=== PATIENT | male | born 1990 | race Caucasian/White ===

== ENCOUNTER 2023-05-08 15:53 | Outpatient (CLI) | payer OTHER, SELFPAY ==
--- NOTE | ~2023-05-08 | CT_ITS ---
EXAMINATION: CT abdomen pelvis wo con DATE: 05/08/2023 16:14 INDICATION: K43.9 - Ventral hernia without obstruction or gangrene TECHNIQUE: Computed tomography (CT) of the abdomen and pelvis was performed without intravenous contr ast. Automated exposure control and iterative reconstruction technique were employed. The dose-length product was 1154.21 mGy-cm. COMPARISON: None. FINDINGS: Lower thorax: Multiple calcified granulomas. Liver: Normal. Biliary/Gallbladder: Gallbladder is collapsed. No bile duct dilation. Pancreas: No mass or duct dilation. Spleen: Normal. Splenule. Adrenals:No mass. Kidneys: No suspicious mass, obstructing stone, or hydronephrosis. GI tract: No small or large bowel dilation. Normal appendix. Mesentery/Peritoneum: No ascites, mass, or free air. Retroperitoneum: No mass. Pelvis: Pelvic organs are within normal limits. Soft Tissues: Small bilateral uncomplicated fat-containing inguinal hernias. Small uncomplicated fat- containing umbilical hernia. 2.3 cm fat-containing supraumbilical hernia with an 11 mm neck, without inflammatory change. Bones: No acute osseous finding. IMPRESSION: No acute abdominopelvic process. Small, uncomplicated, fat-containing supraumbilical, umbilical, and bilateral inguinal hernias. Reviewed, dictated and finalized at location K. IMPRESSION: No acute abdominopelvic process. Small, uncomplicated, fat-containing supraumbilical, umbilical, and bilateral i nguinal hernias.
== END 2023-05-08 15:54 | disposition home or self-care (01) ==
LOC: ANHIMG 15:56
PROVIDERS: PCP Emergency Medicine; Visit Provider Emergency Medicine
DX: K43.9 Ventral hernia without obstruction or gangrene (principal); K42.9 Umbilical hernia without obstruction or gangrene
CPT/HCPCS: 74176

== ENCOUNTER 2023-11-06 15:38 | Outpatient (CLI) | payer OTHER, SELFPAY ==
--- NOTE | ~2023-11-06 | XR_ITS ---
EXAMINATION: XR chest 2V DATE: 11/06/2023 16:03 INDICATION: Shortness of breath, cough and chest pain TECHNIQUE: PA and lateral views of the chest were obtained. COMPARISON: None FINDINGS: The lungs are clear with no focal airspace opacities, pulmonary edema, pleural effusion or pneumothor ax. The cardiomediastinal silhouette is normal. Plain screw fixation along one of the proximal humeri on the lateral projection IMPRESSION: 1. No acute cardiopulmonary disease. Reviewed, dictated and finalized at location B.
== END 2023-11-06 15:39 | disposition home or self-care (01) ==
PROVIDERS: PCP Student in an Organized Health Care Education/Training Program; Visit Provider Student in an Organized Health Care Education/Training Program
DX: R07.9 Chest pain, unspecified (principal); R05.9 Cough, unspecified; R06.02 Shortness of breath
CPT/HCPCS: 71046